=== PATIENT | male | born 1965 | race Asian ===

== ENCOUNTER 2022-09-17 10:23 | Day surgery (SDC) | payer OTHER ==
[~2022-09-17] VITALS: Ht 162.6 cm; Wt 71.7 kg
[2022-09-17] MEDS ORDERED: LIDOCAINE 2% 100 MG/5 ML UJET TP ONE (11:59)
[2022-09-17] MEDS ORDERED: MIDAZOLAM 2 MG/2 ML VIAL ONE (11:59)
[2022-09-17] MEDS ORDERED: fentaNYL citrate 0.05 MG/ML VIAL ONE (11:59)
[2022-09-17] MEDS ORDERED: diphenhydrAMINE 50 MG/ML VIAL ONE (11:59)
[2022-09-17] MEDS ORDERED: fentaNYL citrate 0.05 MG/ML VIAL IVP ONE (14:25)
[2022-09-17] MEDS ORDERED: MIDAZOLAM 2 MG/2 ML VIAL IVP ONE (14:25)
== END 2022-09-17 13:50 | disposition home or self-care (01) ==
LOC: MDS 10:23 → MMU 10:23 → MDS 13:50
PROVIDERS: ATTEND Internal Medicine Gastroenterology
DX: K59.00 Constipation, unspecified (principal); Z86.010 Personal history of colon polyps; K63.5 Polyp of colon; K57.30 Diverticulosis of large intestine without perforation or abscess without bleeding; I10 Essential (primary) hypertension; E78.5 Hyperlipidemia, unspecified; K21.9 Gastro-esophageal reflux disease without esophagitis; E11.9 Type 2 diabetes mellitus without complications; Z79.82 Long term (current) use of aspirin; Z79.899 Other long term (current) drug therapy
CPT/HCPCS: 45385; J2250; J3010; J1200